=== PATIENT | male | born 1995 | race African-American/Black ===

== ENCOUNTER 2018-04-22 01:14 | Emergency (ER) | payer MEDICAID ==
[~2018-04-22] VITALS: Ht 188 cm; Wt 64.7 kg
[2018-04-22] MEDS ORDERED: IBUPROFEN 600MG TABLET PO ONE (06:15)
[2018-04-22 08:52] VITALS: BP 111/58
== END 2018-04-22 08:55 | disposition home or self-care (01) ==
LOC: ER 01:14
DX: M25.512 Pain in left shoulder (principal); M54.5 Low back pain; V49.50XA Passenger injured in collision with unspecified motor vehicles in traffic accident, initial encounter; Y93.89 Activity, other specified; Y92.410 Unspecified street and highway as the place of occurrence of the external cause; F17.210 Nicotine dependence, cigarettes, uncomplicated; F12.90 Cannabis use, unspecified, uncomplicated
CPT/HCPCS: 72100; 73000; 99284

== ENCOUNTER 2018-05-24 03:45 | Emergency (ER) | payer MEDICAID ==
[~2018-05-24] VITALS: Ht 188 cm; Wt 65.0 kg
[2018-05-24] MEDS ORDERED: IBUPROFEN 600MG TABLET PO ONE (06:30)
[2018-05-24 07:32] VITALS: BP 115/60
== END 2018-05-24 07:52 | disposition home or self-care (01) ==
LOC: ER 04:38
DX: M25.562 Pain in left knee (principal); F17.200 Nicotine dependence, unspecified, uncomplicated; F12.10 Cannabis abuse, uncomplicated
CPT/HCPCS: 73562; 99284; L1830

== ENCOUNTER 2019-07-05 02:00 | Emergency (ER) | payer MEDICAID ==
[~2019-07-05] VITALS: Ht 182.9 cm; Wt 68.0 kg
[2019-07-05] MEDS ORDERED: KETOROLAC 30MG/ML VIAL IV STA (03:23)
[2019-07-05 03:39] LABS: BASOPHILS % 0.7 % (0.0-2.0); CHLORIDE 109 mEq/L (98-107); EOSINOPHILS % 0.9 % (0.0-5.0); HEMOGLOBIN. 13.9 g/dL (14.0-18.0); LYMPHOCYTES % 24.2 % (20.0-50.0); MEAN CORPUSCULAR HEMOGLOBIN 29.6 pg (28.0-32.0); MEAN CORPUSCULAR VOLUME 85.3 fL (80.0-94.0); MEAN PLATELET VOLUME 9.2 fl (7.4-10.4); MONOCYTES % 5.8 % (2.0-8.0); NEUTROPHILS % 68.4 % (40.0-76.0); PLATELET 220 x1000/uL (130-400); RED BLOOD CELL COUNT 4.69 mill/uL (4.7-6.1); RED CELL DISTRIBUTION WIDTH 14.2 % (11.6-14.6)
[2019-07-05 05:55] VITALS: BP 135/77
== END 2019-07-05 05:59 | disposition home or self-care (01) ==
LOC: ER 02:00
DX: M94.0 Chondrocostal junction syndrome [Tietze] (principal); F12.10 Cannabis abuse, uncomplicated; F17.210 Nicotine dependence, cigarettes, uncomplicated; Z71.6 Tobacco abuse counseling
CPT/HCPCS: 36415; 71045; 80053; 83880; 84484; 85025; 85379; 93005; 96374; 99284; 99406; J1885